=== PATIENT | female | born 1990 | race Caucasian/White ===

== ENCOUNTER 2017-07-05 13:33 | Emergency (ER) | payer BC, MEDICAID ==
[~2017-07-05] VITALS: Ht 160 cm; Wt 87.9 kg
[~2017-07-05 13:33] MED LIST: DIFL150T PO; LEVA500T PO
[2017-07-05 13:41] VITALS: BP 136/93; PULSE 99; RESP 16; TEMP 98.3; O2SAT 100
[2017-07-05] MEDS ORDERED: SODIUM CHLOR 0.9% 1000 ML INJ 1,000 ML IV ONE (14:23)
[2017-07-05] MEDS ORDERED: SODIUM CHLORIDE 0.9% FLUSH 10 ML FLUSH IVF PRN (14:30)
[2017-07-05] MEDS ORDERED: diphenhydrAMINE HCL 50 MG/ML VIAL IVP ONE (14:30)
[2017-07-05] MEDS ORDERED: ACETAMINOPHEN 325 MG TAB PO ONE (14:30)
[2017-07-05] MEDS ORDERED: PROCHLORPERAZINE INJ 10 MG/2 ML VIAL IVP ONE (14:30)
[2017-07-05 14:35] VITALS: O2SAT 97
--- NOTE | 2017-07-05 15:23 | PD ---
HPI Chief Complaint: Headache Time Seen by Provider: 14:08 Travel History International Travel<30 days: No Contact w/Intl Traveler<30days: No Traveled to known affect area: No History of Present Illness HPI 27-year-old female complains of headache for 5 days. The onset occurred while driving. It's worse while leaning forward or standing up causing pounding pain. She has had headaches before but nothing similar to this. She's had no fever. The pain at the time of ER evaluation is bitemporal in location. Initially it was right retro-orbital. Patient woke up at 3:30 AM this morning with severe cephalgia. She took 800 mg ibuprofen which was marginally helpful. She reports phono photophobia. Nausea reported. There is no pain with range of motion of the neck. There is no neck pain or neck stiffness at rest. PFSH Past Medical History Diabetes: Yes (GESTATIONAL) Patient Takes Glucophage: No Diminished Hearing: No Hypertension: Yes (DURING ) Tetanus Vaccination: Unknown Influenza Vaccination: No ?: Not LMP: TUBALIGATION : 2 Para: 1 Miscarriage: 0 : 0 Tubal Ligation: Yes Past Surgical History Oral Surgery: Yes (WISDOM TEETH REMOVAL) Social History Alcohol Use: No Tobacco Use: No Substance Use: No Allergies-Medications (Allergen,Severity, Reaction): Coded Allergies: ampicillin (Unverified Allergy, Severe, HEADACHE, NAUSEA, 07/05/17) latex (Unverified Allergy, Severe, SKIN BREAK OUT, 07/05/17) Reported Meds & Prescriptions Reported Meds & Active Scripts Active Phenergan (Promethazine HCl) 25 Mg Tablet 25 Mg PO Q6H PRN Review of Systems Except as stated in HPI: all other systems reviewed are Neg Physical Exam Narrative GENERAL: 19-year-old female pleasant well-nourished well-developed no acute distress SKIN: Warm and dry. HEAD: Atraumatic. Normocephalic. EYES: Pupils equal and round. No scleral icterus. No injection or drainage. Normal range of motion. Conjugate gaze. ENT: No nasal bleeding or discharge. Mucous membranes pink and moist. NECK: Trachea midline. No JVD. CARDIOVASCULAR: Regular rate and rhythm. RESPIRATORY: No accessory muscle use. Clear to auscultation. Breath sounds equal bilaterally. GASTROINTESTINAL: Abdomen soft, non-tender, nondistended. Hepatic and splenic margins not palpable. MUSCULOSKELETAL: Extremities without clubbing, cyanosis, or edema. No obvious deformities. NEUROLOGICAL: Awake and alert. No obvious cranial nerve deficits. Motor grossly within normal limits. Five out of 5 muscle strength in the arms and legs. Normal speech. PSYCHIATRIC: Appropriate mood and affect; insight and judgment normal. Data Data Last Documented VS Vital Signs Date Time Temp Pulse Resp B/P (MAP) Pulse Ox O2 Delivery O2 Flow Rate FiO2 07/05/17 15:41 105 16 137/81 (99) 100 07/05/17 14:35 Room Air 07/05/17 13:41 98.3 Vital signs reviewed Orders Orders Ecg Monitoring (07/05/17 14:23) Iv Access Insert/Monitor (07/05/17 14:23) Oximetry (07/05/17 14:23) Sodium Chloride 0.9% Flush (Ns Flush) (07/05/17 14:30) Prochlorperazine Inj (Compazine Inj) (07/05/17 14:30) Diphenhydramine Inj (Benadryl Inj) (07/05/17 14:30) Sodium Chlor 0.9% 1000 Ml Inj (Ns 1000 M (07/05/17 14:23) Acetaminophen (Tylenol) (07/05/17 14:30) MDM Medical Decision Making Medical Screen Exam Complete: Yes Emergency Medical Condition: Yes Medical Record Reviewed: Yes Differential Diagnosis Subarachnoid hemorrhage, aneurysm, intracranial mass, sinusitis, meningitis, cavernous sinus thrombosis, venous sinus thrombosis, tension headache, cluster headache Narrative Course Patient received Compazine Benadryl and IV fluids. She is reassessed at 3:25 PM and was found to be resting comfortably. Patient at that time reported complete resolution of cephalgia. Discharge instructions were discussed. She is ready for discharge home. Diagnosis Primary Impression: Headache Qualified Codes: R51 - Headache Referrals: Primary Care Physician 2 days Additional Instructions: You have a choice when it comes to health care, and we are glad that you chose [facility]. Hopefully, we have met your expectations on today's visit. You are welcome to return to [facility] at any time, as we are committed to meeting the health care needs of our community. Med/Other Pt SpecificInfo: Prescription(s) given Scripts Promethazine (Phenergan) 25 Mg Tablet 25 MG PO Q6H Y for HEADACHE, #20 TAB 0 Refills Prov: Manpreet Gaytan MD 07/05/17 Disposition: 01 DISCHARGE HOME Condition: Stable Manpreet Gaytan MD Jul 05, 2017 15:23
[2017-07-05] MEDS ORDERED: PROM25TA10 PO (15:26)
[2017-07-05 15:41] VITALS: BP 137/81
== END 2017-07-05 15:42 | disposition home or self-care (01) ==
LOC: PHED 13:33
DX: R51 Headache (principal); Z88.0 Allergy status to penicillin
CPT/HCPCS: 96361; 96374; 96375; 99284; J0780; J1200; J7030

== ENCOUNTER 2017-11-17 17:34 | Emergency (ER) | payer MEDICAID ==
[~2017-11-17] VITALS: Ht 160 cm; Wt 84.4 kg
[~2017-11-17 17:34] MED LIST changes: -DIFL150T PO; -LEVA500T PO; +PROM25TA10 PO
[2017-11-17 17:36] VITALS: BP 157/76; PULSE 107; RESP 16; TEMP 98.6; O2SAT 100
--- NOTE | 2017-11-17 18:36 | PD ---
HPI Chief Complaint: Pain: Acute or Chronic Time Seen by Provider: 17:59 Travel History International Travel<30 days: No Contact w/Intl Traveler<30days: No Traveled to known affect area: No History of Present Illness HPI 27-year-old female presents to the ED for evaluation of 4 day history of right sided anterior lateral chest wall pain. Worsened by coughing and deep breathing. Patient states that she occasionally feels a "rattling" sensation in the area. She endorses nonproductive cough. She endorses mild nausea. She denies shortness of breath, fever, chills, cold symptoms, abdominal pain, dysuria, hematuria, back pain. She states that she had tubal ligation reversal approximately 8 days ago. Surgery was performed in [place]. She has not yet had her postop visit. [facility] Past Medical History Medical History: Denies Significant Hx Diminished Hearing: No Hypertension: Yes (DURING ) Tetanus Vaccination: Unknown Influenza Vaccination: No ?: Not LMP: 12 28 17 : 2 Para: 1 Miscarriage: 0 : 0 Tubal Ligation: Yes Past Surgical History Oral Surgery: Yes (WISDOM TEETH REMOVAL) Social History Alcohol Use: No Tobacco Use: No Substance Use: No Allergies-Medications (Allergen,Severity, Reaction): Coded Allergies: ampicillin (Unverified Allergy, Severe, HEADACHE, NAUSEA, 11/17/17) latex (Unverified Allergy, Severe, SKIN BREAK OUT, 11/17/17) Reported Meds & Prescriptions Reported Meds & Active Scripts Active Zofran Odt (Ondansetron Odt) 4 Mg Tab 4 Mg SL Q6HR PRN Phenergan (Promethazine HCl) 25 Mg Tablet 25 Mg PO Q6H PRN Review of Systems Except as stated in HPI: all other systems reviewed are Neg Physical Exam Narrative GENERAL: Well-nourished, well-developed white female in no acute distress. SKIN: Focused skin assessment warm/dry. 4-6 cm surgical Pfannenstiel incision. Steri-Strips in place. Mild surrounding ecchymosis. No tenderness to palpation. No erythema, warmth or discharge noted. HEAD: Normocephalic. EYES: No scleral icterus. No injection or drainage. NECK: Supple, trachea midline. No JVD or lymphadenopathy. CARDIOVASCULAR: Regular rate and rhythm without murmurs, gallops, or rubs. RESPIRATORY: Breath sounds clear and equal bilaterally. No accessory muscle use. CHEST: Mild tenderness to palpation lateral to the right breast and inferior to the right axilla. No visible ecchymosis or erythema. Nontender throughout without deformity or crepitus. No retractions or use of accessory muscles. GASTROINTESTINAL: Abdomen soft, non-tender, nondistended. Active bowel sounds. MUSCULOSKELETAL: No cyanosis, or edema. BACK: Nontender without obvious deformity. No CVA tenderness. Data Data Last Documented VS Vital Signs Date Time Temp Pulse Resp B/P (MAP) Pulse Ox O2 Delivery O2 Flow Rate FiO2 11/17/17 22:16 102 18 131/87 (102) 97 11/17/17 20:50 Room Air 11/17/17 17:36 98.6 Orders Orders Chest, Pa & Lat (11/17/17 18:27) D-Dimer (11/17/17 19:10) Acetaminophen (Tylenol) (11/17/17 19:30) Ct Pulmonary Angiogram (11/17/17 20:03) Iohexol 350 Inj (Omnipaque 350 Inj) (11/17/17 20:45) Ed Discharge Order (11/17/17 21:35) Labs Laboratory Tests Test 11/17/17 19:18 D-Dimer Quantitative (PE/DVT) 2.99 MG/L FEU MDM Medical Decision Making Medical Screen Exam Complete: Yes Emergency Medical Condition: Yes Differential Diagnosis Musculoskeletal pain versus less likely pneumonia versus less likely PE versus other Narrative Course 27-year-old female presents to the ED for evaluation of 4 day history of right sided anterior lateral chest wall pain. Worsened by coughing and deep breathing. Patient states that she occasionally feels a "rattling" sensation in the area. She endorses nonproductive cough. She endorses mild nausea. She denies shortness of breath, fever, chills, cold symptoms, abdominal pain, dysuria, hematuria, back pain. She states that she had tubal ligation reversal approximately 8 days ago. Surgery was performed in [place]. She has not yet had her postop visit. Vitals reviewed. Heart rate rate 107. O2 saturation 100% on presentation. Physical exam reveals a nontoxic-appearing white female in no acute distress. She does have mild reproducible tenderness to deep palpation lateral to the right breast. On recheck heart rate hovers around 100. CXR reveals no evidence of mass, consolidation or effusion per radiology read. Wells score 3, moderate risk. D-dimer 2.99. CTA negative. This is musculoskeletal chest pain. Patient is is instructed to treat symptomatically with OTC meds, follow with her surgeon. She indicated understanding of the instructions and is agreeable to the care plan. She is stable and discharged home. Diagnosis Primary Impression: Musculoskeletal chest pain Scripts Ondansetron Odt (Zofran Odt) 4 Mg Tab 4 MG SL Q6HR Y for Nausea/Vomiting, #10 TAB 0 Refills Prov: John Manuel MD 11/17/17 Disposition: DISCHARGE HOME Condition: Stable Emily Zamora Nov 17, 2017 18:36
--- NOTE | 2017-11-17 18:59 | RADRPT ---
EXAM DATE/TIME: 11/17/2017 18:41 [facility] COMPARISON: No previous studies available for comparison. INDICATIONS : Right chest pain with cough. MEDICAL HISTORY : None. SURGICAL HISTORY : Tubal ligation with reversal ENCOUNTER: Initial ACUITY: 3 days PAIN SCORE: 5/10 LOCATION: Right chest FINDINGS: PA and lateral views of the chest demonstrate the lungs to be symmetrically aerated without evidence of mass, infiltrate or effusion. The cardiomediastinal contours are unremarkable. Osseous structure s are intact. CONCLUSION: No acute disease. Carlos Alberto Prabhakar MD on November 17, 2017 at 18:57 Board Certified Radiologist. This report was verified electronically.
[2017-11-17] MEDS ORDERED: ACETAMINOPHEN 325 MG TAB PO ONE (19:30)
[2017-11-17] MEDS ORDERED: IBUP1TAB7 PO (20:01)
[2017-11-17] MEDS ORDERED: IOHEXOL 350 MG/ML 10 ML VIAL (for RAD DIAG) IVCONTRAST ONE (20:45)
[2017-11-17 20:50] VITALS: BP 135/89; PULSE 100; RESP 16; O2SAT 100
--- NOTE | 2017-11-17 21:20 | RADRPT ---
EXAM DATE/TIME: 11/17/2017 20:51 [facility] COMPARISON: No previous studies available for comparison. INDICATIONS : Right rib pain status post tubal ligation reversal surgery 8 days ago. Elevated D-Dimer. IV CONTRAST: 74 cc Omnipaque 350 (iohexol) IV RADIATION DOSE: 14.27 CTDIvol (mGy) ; Patient body habitus MEDICAL HISTORY : Hypertension. SURGICAL HISTORY : Tubal ligation. and reversal ENCOUNTER: Initial ACUITY: 1 week PAIN SCALE: 5/10 LOCATION: Right lower chest TECHNIQUE: Volumetric scanning of the chest was performed using a pulmonary embolism protocol MIP images were re constructed. Using automated exposure control and adjustment of the mA and/or kV according to patien t size, radiation dose was kept as low as reasonably achievable to obtain optimal diagnostic quality images. DICOM format image data is available electronically for review and comparison. Follow-up recommendations for detected pulmonary nodules are based at a minimum on nodule size and pa tient risk factors according to Fleischner Society Guidelines. FINDINGS: PULMONARY ARTERIES: No filling defects are seen in the pulmonary arteries through the segmental level. LUNGS: There is no consolidation or pneumothorax . No concerning pulmonary nodule is visualized. PLEURAE: There is no pleural thickening or pleural effusion. MEDIASTINUM: There is good visualization of the great vessels of the middle mediastinum. No evidence of mediastin al or hilar adenopathy/mass. MUSCULOSKELETAL: Within normal limits for patient age. MISCELLANEOUS: The visualized upper abdominal organs demonstrate no acute abnormality. CONCLUSION: Normal examination for a patient of this age. Carlos Alberto Prabhakar MD on November 17, 2017 at 21:16 Board Certified Radiologist. This report was verified electronically.
[2017-11-17] MEDS ORDERED: ZOFR4TAB3 SL (21:35)
[2017-11-17 22:16] VITALS: BP 131/87
== END 2017-11-17 22:16 | disposition home or self-care (01) ==
LOC: PHEFT 17:34
DX: R07.89 Other chest pain (principal); R05 Cough; R11.0 Nausea; Z79.899 Other long term (current) drug therapy
CPT/HCPCS: 71046; 71275; 85379; 99285; Q9967